=== PATIENT | male | born 1985 | race Asian ===

== ENCOUNTER 2023-05-04 04:28 | Emergency (ER) | payer MEDICAID ==
[~2023-05-04] VITALS: Ht 162.6 cm; Wt 56.7 kg
[2023-05-04 04:36] VITALS: BP_SYST 138; PULSE 72; RESP 17; TEMP 98.3; O2SAT 100
[2023-05-04] MEDS ORDERED: NACL 0.9% 1,000 ML IV ONE (04:45)
[2023-05-04] MEDS ORDERED: MORPHINE 2 MG/ML INJ. SYRINGE IVP ONE (04:45)
[2023-05-04] MEDS ORDERED: ONDANSETRON HCL 4 MG/2 ML VIAL IVP ONE (04:45)
[2023-05-04 05:13] LABS: BASOPHILS % (AUTO) 0.3 % (0.0-2.0); HEMOGLOBIN 14.2 g/dL (14.0-18.0); LYMPHOCYTES # (AUTO) 1.3 K/uL (1.0-5.5); LYMPHOCYTES % (AUTO) 8.1 % (20.5-51.5); MEAN CORPUSCULAR HEMOGLOBIN 22 pg (27-31); MEAN CORPUSCULAR HGB CONC 30 % (32-36); MEAN CORPUSCULAR VOLUME 74 fL (79.0-98.0); MONOCYTES # (AUTO) 0.4 K/uL (0.0-1.0); MONOCYTES % (AUTO) 2.5 % (1.7-9.3); NEUTROPHILS # (AUTO) 14.6 K/uL (1.8-7.7); NEUTROPHILS % (AUTO) 89.1 % (40.0-70.0); PLATELET COUNT (AUTO) 213 K/uL (130-430); RED CELL DISTRIBUTION WIDTH 14.2 % (9.0-15.0); WHITE BLOOD COUNT (AUTO) 16.4 K/uL (4.8-10.8)
[2023-05-04 05:26] LABS: CALCIUM 9.7 mg/dL (8.4-11.0); CREATININE 0.7 mg/dL (0.55-1.30)
[2023-05-04 05:30] LABS: ALBUMIN 4.2 g/dL (3.4-4.8); TOTAL BILIRUBIN 0.3 mg/dL (0.0-1.0); TOTAL PROTEIN, SERUM 7.6 g/dL (6.4-8.3)
[2023-05-04 06:25] LABS: HEMATOCRIT 42.6 % (36-54); RED BLOOD CELL COUNT(AUTO) 4.26 MIL/uL (4.2-6.2)
[2023-05-04] MEDS ORDERED: METO-290 PO (06:52)
[2023-05-04] MEDS ORDERED: OMEP20CA15 PO (06:52)
[2023-05-04 06:59] VITALS: BP_SYST 125; PULSE 76; RESP 14; TEMP 98.3; O2SAT 99
== END 2023-05-04 07:01 | disposition home or self-care (01) ==
LOC: SED 04:28
DX: R10.13 Epigastric pain (principal); R11.10 Vomiting, unspecified; R19.7 Diarrhea, unspecified
CPT/HCPCS: 99285; 74177; 96374; 96361; 96375; 80053; 83690; 85025; 36415; 76376; J2405; J2270; Q9967; J7030

== ENCOUNTER 2023-08-30 14:44 | Emergency (ER) | payer MEDICAID ==
[~2023-08-30] VITALS: Ht 167.6 cm; Wt 57.6 kg
[~2023-08-30 14:44] MED LIST: METO-290 PO; OMEP20CA15 PO
[2023-08-30 15:13] VITALS: BP_SYST 115; PULSE 69; RESP 16; TEMP 97.4; O2SAT 99
[2023-08-30] MEDS ORDERED: DIPHTH,PERTUSS(ACELL),TET VAC 0.5 ML VIAL (Tdap) I.M. ONE (16:45)
[2023-08-30] MEDS ORDERED: BACITRACIN 1 GM OINT TP ONE (16:45)
[2023-08-30] MEDS ORDERED: LIDOCAINE 1% 10 MG/ML, 20 ML MDV INJ ONE (16:45)
[2023-08-30] MEDS ORDERED: AMOX-423 PO (16:48)
[2023-08-30] MEDS ORDERED: IBUP-1971 PO (16:56)
== END 2023-08-30 17:05 | disposition home or self-care (01) ==
LOC: SED 14:44
DX: S01.511A Laceration without foreign body of lip, initial encounter (principal); Z79.899 Other long term (current) drug therapy; W22.09XA Striking against other stationary object, initial encounter; Y93.89 Activity, other specified; Y92.89 Other specified places as the place of occurrence of the external cause; Y99.8 Other external cause status
CPT/HCPCS: 90715; 99284; J2001

== ENCOUNTER 2023-09-04 09:42 | Emergency (ER) | payer MEDICAID ==
[~2023-09-04] VITALS: Ht 162.6 cm; Wt 56.7 kg
[2023-09-04 09:42] VITALS: BP_SYST 91; PULSE 90; RESP 17; TEMP 97.4; O2SAT 98
[~2023-09-04 09:42] MED LIST changes: +AMOX-423 PO; +IBUP-1971 PO
[2023-09-04 10:20] VITALS: BP_SYST 91; PULSE 90; RESP 17; TEMP 97.4; O2SAT 98
== END 2023-09-04 10:21 | disposition home or self-care (01) ==
LOC: SED 09:42
DX: Z48.00 Encounter for change or removal of nonsurgical wound dressing (principal); Z79.899 Other long term (current) drug therapy
CPT/HCPCS: 99281

== ENCOUNTER 2023-09-08 19:39 | Emergency (ER) | payer MEDICAID ==
[~2023-09-08] VITALS: Ht 162.6 cm; Wt 59.0 kg
[2023-09-08 19:47] VITALS: BP_SYST 112; PULSE 82; RESP 16; TEMP 98.7; O2SAT 100
[2023-09-08 19:59] VITALS: BP_SYST 112; PULSE 82; RESP 16; TEMP 98.7; O2SAT 100
== END 2023-09-08 19:59 | disposition home or self-care (01) ==
LOC: SED 19:39
DX: Z48.02 Encounter for removal of sutures (principal); Z79.899 Other long term (current) drug therapy
CPT/HCPCS: 99281